=== PATIENT | male | born 1965 | race Caucasian/White ===

== ENCOUNTER → 2019-01-07 | Day surgery (SDC) | payer OTHER ==
[2019-01-06 11:40] VITALS: BMI 27.7
[~2019-01-07] MED LIST: Bupivacaine HCl 0.5%/Epinephrine 1:200,000/PF 30 ml Vial ONE; Fentanyl 100 MCG/2 ML VIAL ONE; Heparin 5,000 UNITS/ML VIAL ONE; Ketorolac Tromethamine 30 MG/ML VIAL ONE; Levofloxacin 500 mg/D5W 100 ml Premix Bag ONE; Lidocaine 2% PF 5 ML VIAL ONE; Midazolam HCl 2 mg/2 ml Vial ONE; PROPOFOL 200 MG/20 ML VIAL ONE; Sodium Chloride 0.9% 10 ML ONE
--- NOTE | 2019-01-07 07:53 | HP ---
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 He has a history of rectal cancer, undergoing low anterior resection in [place], [place], laparoscopic assisted in 2016. He had rosalva-adjunctive radiation, chemotherapy and postoperative chemotherapy. Apparently, he was node-negative without evidence of disease. The patient initially was seen in October 2015, found to have a 3 x 2.5 cm mass 1 to 2 cm from the dentate line on colonoscopy consistent with adenocarcinoma. Rectal ultrasound showed T3N0 tumor and he underwent rosalva-adjunctive radiation therapy and chemotherapy, followed by low anterior resection on 04/23/2016 with protective diverting ileostomy. Pathology revealed no residual malignancy with negative nodes. He had postoperative chemotherapy and then had his ileostomy reversed. In November 2016, flexible sigmoidoscopy was normal. On 05/13/2018, he was found to have bilateral pulmonary multiple metastases. Lung biopsy confirmed that. Moderately differentiated adenocarcinoma of colorectal origin. He was seen by MD Patterson with normal CEA level and PET scan on 07/29/2018 show bilateral lung metastases, left thyroid nodule FNA, metastatic colorectal cancer, restarting chemotherapy on 10/25/2018. Restaging PET scan on 11/02/2018 showed slightly improved lung metastases. There was some consideration for surgical resection of metastasis at a later point. Recent PET scan revealed some pelvic activity. The patient wants to schedule repeat endoscopy at [facility], we will refer him for that. I have been asked by Dr. Hawk to place a MediPort. Plan is to place a MediPort under IV sedation, local anesthesia as an outpatient. He has had recent labs and no further labs are necessary. The patient is followed by Dr. Flaherty, has a coronary stent in place, recently seen by him in the last week and he has stable coronary artery disease and he is asymptomatic. PAST MEDICAL HISTORY: 1. Hypertension. 2. Stable coronary artery disease, stent in 2013. 3. Arthritis in 2009. 4. Depression. 5. Rectal cancer. 6. Cholecystectomy in the past. PAST SURGICAL HISTORY: 1. Cholecystectomy. 2. Upper and lower endoscopy in the past. 3. Low-anterior resection. 4. Protective ileostomy, subsequent ileostomy reversal. 5. Right lower lobe lung biopsy, FNA of left thyroid nodule revealing metastatic disease. SOCIAL HISTORY: The patient is and has 2 children. Tobacco cessation, past history of use. MEDICATIONS: 1. Amlodipine. 2. Clonidine p.r.n. 3. Imodium. 4. Lorazepam. 5. Tramadol p.r.n. PHYSICAL EXAMINATION: VITAL SIGNS: Weight 228 pounds, height 75 inches, blood pressure 125/79, pulse 88, temperature 98.4 degrees. HEAD, EARS, EYES, NOSE, AND THROAT: Unremarkable. LUNGS: Clear to auscultation. CARDIAC: Regular rate and rhythm without murmur or gallop. ABDOMEN: Soft and nontender. No masses. Well-healed suprapubic small incision. Ileostomy reversal site, well-healed scar. ASSESSMENT: Metastatic rectal cancer. PLAN: MediPort placement. He has metastatic disease documented in bilateral lungs, right thyroid, and new PET signals in pelvis. Risks and benefits explained. He consents. Job ID: [id number]
--- NOTE | 2019-01-07 11:45 | RAD ---
PORTABLE CHEST 1 VIEW: Date: 01/07/19 Time: 1010 hours HISTORY: Postop MediPort placement. FINDINGS/IMPRESSION: The heart size is borderline. There is a right infrahilar mass. There is a left subclavian Port-A-Cat h with tip in the projection of the SVC. No pneumothoraces are seen. POS: [facility]
--- NOTE | 2019-01-07 12:37 | OP ---
DATE OF PROCEDURE: 01/07/2019 PREOPERATIVE DIAGNOSIS: Metastatic rectal cancer in need of antineoplastic chemotherapy access. POSTOPERATIVE DIAGNOSIS: Metastatic rectal cancer in need of antineoplastic chemotherapy access. PROCEDURE PERFORMED: Left subclavian vein MediPort low-profile, fluoroscopy used. ANESTHESIA: Intravenous sedation, local of 0.5% Marcaine with epinephrine 30 mL mixed with 2% Xylocaine 10 mL. DESCRIPTION OF PROCEDURE: The patient was taken to the operating room, where under intravenous sedation, neck and chest were prepared with ChloraPrep and draped in routine fashion. Local anesthetic was infiltrated in the skin and subcutaneous tissue about the operative site. Infraclavicular approach left made and cannulated the left subclavian vein through the J-wire, removing the trocar catheter, making a skin incision sharply, creating an incision in the left upper chest, creating a pocket with blunt and sharp dissection using cautery for hemostasis. Dilator and Peel-Away sheath were placed with J-wire in the subclavian vein. Dilator and J-wire were removed. Catheter was placed through the Peel-Away sheath. Peel-Away sheath was removed. Fluoroscopically, catheter tip was placed in optimal position in superior vena cava and catheter tailored to the length and connected to the MediPort, which was placed in subcutaneous pocket and secured with 2 interrupted sutures of 3-0 Prolene. Subcutaneous tissue was approximated with 3-0 Monocryl, skin with subdermal 4-0 Monocryl, and Tool glue applied. [place] needle was used to access the port, aspirated blood, and flushed with heparinized saline solution. The patient tolerated the procedure well. Job ID: [id number]
== END ==
LOC: SDC 08:46
PROVIDERS: ATTEND Specialist
DX: C20 Malignant neoplasm of rectum (principal); C78.02 Secondary malignant neoplasm of left lung; C78.01 Secondary malignant neoplasm of right lung; I10 Essential (primary) hypertension; I25.10 Atherosclerotic heart disease of native coronary artery without angina pectoris; M19.90 Unspecified osteoarthritis, unspecified site; F32.9 Major depressive disorder, single episode, unspecified; Z87.891 Personal history of nicotine dependence; Z92.3 Personal history of irradiation; Z92.21 Personal history of antineoplastic chemotherapy; Z95.5 Presence of coronary angioplasty implant and graft; Z90.49 Acquired absence of other specified parts of digestive tract; Z88.0 Allergy status to penicillin; Z79.899 Other long term (current) drug therapy; Z98.890 Other specified postprocedural states
CPT/HCPCS: 71045; C1788; J0131; J0670; J1642; J1644; J1885; J1956; J2001; J2250; J2704; J3010

== ENCOUNTER 2019-02-03 07:39 | Outpatient (CLI) | payer OTHER ==
--- NOTE | 2019-02-03 10:42 | PET ---
PET CT FROM VERTEX OF THE SKULL THROUGH THE MID THIGHS: HISTORY: History of rectal cancer. COMPARISON: No CT or PET CT evaluations are available for comparison. TECHNIQUE: Multiple PET CT images were obtained from the vertex through the mid thighs following administration of 11.8 mCi of F18-FDG IV. CT images were obtained for attenuation correction purposes only. A repo rt from [facility] CT evaluation of the chest was provided with the patient's documentation. No vivian ges were provided for comparison. INDICATION: Rectal cancer. FINDINGS: BIODISTIRUBTION: Biodistribution for the examination appears acceptable. HEAD AND NECK: No hypermetabolic mass or lymphadenopathy is evident. THORAX: There are bilateral pulmonary metastatic lesions. One of the largest lesions is seen within the medi al segment of the right middle lobe causing partial obstruction of the segmental bronchus of the righ t middle lobe with associated subsegmental volume loss in the right middle lobe. This lesion measure s approximately 4.1 cm in size with a peak SUV uptake of 5.83 and mean volume of 5.6. The lesion was reported to have measured 3.7 cm on a comparison examination. There are small subcentimeter nodules within the lateral segment of the right middle lobe that have no avidity. Additional larger pulmonary nodule within the right lower lobe measures 3.2 cm, which is stable to th e report provided. FDG uptake within this lesion is 6.05 as a maximum uptake value and 5.61 for a me an uptake value. There is a dumbbell-shaped 2.4 cm non-FDG avid pulmonary nodule left lower lobe that likely correspon ds to paired nodules in the left lower lobe described in the [facility] report. The peak activity i s 1.2 and mean activity is 0.67. There are numerous additional smaller non-FDG avid pulmonary nodules seen throughout both lungs, many of which are likely below PET resolution threshold. No hypermetabolic lymphadenopathy is evident. There is a left chest wall port in place. No axillary lymphadenopathy is noted. ABDOMEN AND PELVIS: No hypermetabolic mass or lymphadenopathy is evident. There is a small bowel enteroanastomosis within the right lower quadrant of the abdomen. There is a mild amount of retained stool within the colon. There is a normal retrocecal appendix. There is pro minent soft tissue thickening seen within the presacral region and the lower pelvis likely related to therapy changes. No hypermetabolic mass is evident within the lower pelvis. There is anastomotic s uture line seen at the rectal anal junction. No hypermetabolic lymphadenopathy is evidence. No free fluid is evident. SKIN AND OSSEOUS STRUCTURES: No hypermetabolic skin or osseous lesions identified. There are small bone islands within the pelvis . IMPRESSION: Abnormal PET scan. 1. Bilateral hypermetabolic pulmonary metastatic lesions. There are numerous small pulmonary nodule s throughout both lungs that are non-fluorodeoxyglucose avid. The lesion within the right middle lob e measures slightly larger than the provided report measuring 3.7 cm. It measures approximately 4 cm on today's examination. The lesion within the right lower lobe is stable measuring 3.2 cm. The rep ort details paired nodules in the left lower lobe measuring 15 and 14 mm respectively. There is a du mbbell-shaped non-fluorodeoxyglucose avid nodule within the left lower lobe likely corresponding to t he reported nodules in the left lower lobe measuring 2.4 cm, which his likely stable. 2. No evidence of metastatic disease within the abdomen and pelvis or head and neck region. 3. Post therapy changes involving the lower sacrum. POS: [facility]
== END 2019-02-03 07:40 | disposition home or self-care (01) ==
LOC: PET 07:39
PROVIDERS: ATTEND Internal Medicine Hematology & Oncology
DX: C20 Malignant neoplasm of rectum (principal); C78.01 Secondary malignant neoplasm of right lung; C78.02 Secondary malignant neoplasm of left lung; R91.8 Other nonspecific abnormal finding of lung field
CPT/HCPCS: 78815; A9552

== ENCOUNTER 2020-04-27 09:25 | Outpatient (CLI) | payer MEDICARE ==
[2020-04-27] MEDS ORDERED: Iopamidol 370 76% 100 ML VIAL ONE (11:42)
--- NOTE | 2020-04-27 13:50 | CT ---
EXAM: CT chest, abdomen, and pelvis with IV contrast: HISTORY: Rectal cancer. Evaluate for response to therapy. History of chemotherapy as well as radiation treatme nts. Metastatic lung disease. COMPARISON: [facility] [place] [facility] FINDINGS: CT THORAX: Lungs: Multiple scattered pulmonary nodules are seen throughout the lungs bilaterally which are stabl e in number and the majority of the nodules are stable in size. The largest nodules in each lower lobe are smaller in size. Largest solid spiculated pulmonary nodule posterior aspect right lower lobe previously measured 3.4 cm craniocaudal x3.2 cm transverse x2.2 cm AP and now measures 3 cm x 2.7 cm x 2.2 cm in similar dimensions on the current study. Largest pulmonary nodule in the left lower lo be previously measured 2.4 cm x 1.6 cm in greatest axial dimensions and now measures 2 cm x 1.1 cm. Pleura: No pleural effusion. Lymph nodes: No enlarged lymph nodes are seen by CT size criteria. Mediastinum: Vascular calcifications are again seen in the coronary arteries and aortic arch. A left subclavian Mediport catheter is noted in place with tip in SVC. Chest wall: No abnormalities CT ABDOMEN AND PELVIS: Liver: Within normal limits. Gallbladder: Surgically absent.\ Pancreas: Within normal limits. Spleen:There is a new lobulated area of diminished attenuation in a subcapsular location involving th e anterior and anterolateral aspect of the mid and inferior pole of the spleen. This is difficult to accurately measure given lobulated appearance, but in greatest dimensions measures 5.3 cm cranioca udal x6.5 cm AP x3.2 cm transverse. This could potentially represent subcapsular collection secondary to prior injury. The attenuation coefficient of this subcapsular collection is greater than simple fluid. No free fluid is seen adjacent to the spleen. Clinical correlation is suggested, and follow-up evaluation also recommended. Adrenal glands: Within normal limits. Kidneys: Within normal limits. Urinary Bladder: Mostly decompressed. Reproductive organs: Within normal limits for patient's age. Bowel: Postoperative changes loop of small bowel are seen in the right aspect of the pelvis with post operative changes in the region of the rectum. A moderate amount retained fecal material is seen throughout the colon. Loops of small bowel are normal in caliber. Adenopathy:No enlarged lymph nodes are seen by CT size criteria. Peritoneum/retroperitoneum: There is stranding and soft tissue attenuation seen in a presacral locati on stable from prior study which is likely secondary to postsurgical scarring and possibly postradiation changes. No fluid collection is seen in this region. Soft tissue density posterior to t he left aspect of the urinary bladder is present which is asymmetric to the contralateral right side, but this is likely due to prior postsurgical changes and asymmetry in the seminal vesicles. Thi s is stable in appearance compared to recent study as well as a prior PET/CT examination obtained in the [facility] on 11/03/2018. Abdominal wall: Fat-containing umbilical hernia is again seen. Osseous structures: Again noted is a hemangioma in the T2 vertebral body. No suspicious lytic or scle rotic osseous lesions are identified. Bilateral hip osteoarthritis is present. Sclerotic densities seen in each iliac bone are most compatible with bone islands.. IMPRESSION: 1. Pulmonary metastatic lesions with multiple pulmonary nodules scattered throughout the lungs bilate rally. Pulmonary nodules are stable in number, but the larger pulmonary nodules in each lower lobe have mildly diminished in size. 2. No evidence of lymphadenopathy. 3. Interval development of a subcapsular slightly complex collection involving the spleen. This could potentially be related to prior injury. Clinical correlation is recommended. No adjacent rib fractures are seen. No fluid or stranding is seen adjacent to the spleen. 4. Postoperative changes of loops of bowel as well as postoperative changes seen in a presacral locat ion stable compared to prior studies including PET CT scan examination in 2018. 5. Constipation.
--- NOTE | 2020-04-27 13:51 | CT ---
Exam: Thoracic spine CT with contrast HISTORY: Back pain. Metastatic colon cancer. Comparison none FINDINGS: 12 thoracic type vertebra. Thoracic spine vertebral body heights are maintained. No evidenc e of a fracture. Incidental hemangioma along the left aspect of the T2 vertebral body. Visualized ribs do not demonstrate any destructive processes. Please refer to separate chest abdomen pelvis CT report with regards to mediastinum, lung parenchyma and solid organs The spinal canal and neural foramina are patent IMPRESSION: No CT evidence of osseous metastases or pathologic fracture.
--- NOTE | 2020-04-27 14:26 | CT ---
Exam: Lumbar spine CT without contrast HISTORY: Colon cancer. Back pain. COMPARISON: None FINDINGS: With regards to the abdominal viscera and solid organs, please refer to separate chest abdo men and pelvic CT report 5 lumbar type vertebra. Lumbar spine vertebral body height is maintained. No fracture. Visualized bon y pelvis and sacrum are intact. Sclerotic focus in the right iliac wing, likely representing a bone island. Sacral alar preserved. No fractures Limited evaluation of the contents of the central spinal canal and neural foramina due to technique T12-L1, L1-L2, L2-L3, L3-L4: no significant central canal stenosis or significant neural foraminal na rrowing L4-L5: Broad-based disc bulge abuts the thecal sac. Encroachment upon both subarticular zones with pr obable minimal mass effect upon bilateral traversing L5 nerve roots. Mild bilateral neural foraminal narrowing L5-S1: Left subarticular disc herniation does abut the thecal sac. Mild mass effect upon the traversi ng left S1 nerve root. Moderate bilateral neural foraminal narrowing. Minimal vacuum joint phenomenon in the left facet joint at L5-S1. IMPRESSION: 1. No CT evidence of pathologic fracture 2. Degenerative changes at L4-L5 and L5-S1 as described above. No high-grade central canal stenosis o r high-grade neural foraminal narrowing
== END 2020-04-27 09:26 | disposition home or self-care (01) ==
LOC: CT 09:25
PROVIDERS: ATTEND Internal Medicine Hematology & Oncology
DX: C18.9 Malignant neoplasm of colon, unspecified (principal); C20 Malignant neoplasm of rectum; M54.5 Low back pain; M47.816 Spondylosis without myelopathy or radiculopathy, lumbar region; M47.817 Spondylosis without myelopathy or radiculopathy, lumbosacral region; R91.8 Other nonspecific abnormal finding of lung field; C78.00 Secondary malignant neoplasm of unspecified lung; K59.00 Constipation, unspecified; Z98.890 Other specified postprocedural states
CPT/HCPCS: 71260; 72129; 72132; 74177; Q9967

== ENCOUNTER 2020-08-03 09:04 | Outpatient (CLI) | payer MEDICARE ==
--- NOTE | 2020-08-03 14:57 | CT ---
CT CHEST, ABDOMEN AND PELVIS WITH IV CONTRAST: 08/03/20 HISTORY: Malignant neoplasm of rectum. Colon cancer. Lung mets. Exam requested for restaging. COMPARISON: 04/27/20. FINDINGS: Multiple lung nodules and masses noted bilaterally are stable. No new nodules or masses are seen. The largest measure about 5 cm in the right middle lobe, 2.8 cm in the right lower lobe and 2 cm in the left lower lobe on the axial images. No pneumothoraces, pleural or pericardial effusions are seen. No mediastinal hilar or axillary lympha denopathy is noted. The patient is post cholecystectomy. The liver, adrenal glands, and kidneys appear normal. The subsca pular fluid collection in the anterolateral aspect of the spleen is smaller measuring 2.5 cm transver sely (previously 3.2 cm). Interval development of pancreatic ductal dilatation is seen. No definite pancreatic mass is identifi ed. The bile ducts are not abnormally dilated. No free air, free fluid or lymphadenopathy is seen in the abdomen or pelvis. There are vascular calcifications without evidence of aneurysmal dilatation of the abdominal aorta. No suspicious lytic or sclerotic lesions are seen. Sclerotic densities in each iliac bone compatible with bone islands are again noted. Hemangioma in the T12 vertebral body is agai n seen. Soft tissue density in the presacral region is stable and likely due to postop/post radiation changes . Soft tissue density posterior to the left aspect of the urinary bladder is also stable. A small fat containing left inguinal hernia is present. Appendix is normal. IMPRESSION: 1. Stable pulmonary metastatic disease. 2. Interval reduction in size of the subcapsular fluid collection in the spleen. 3. Interval development of pancreatic ductal dilatation. This should be evaluated with endoscopi c ultrasound. POS: [facility]
== END 2020-08-03 09:05 | disposition home or self-care (01) ==
LOC: SCSCT 09:04
PROVIDERS: ATTEND Internal Medicine Hematology & Oncology
DX: C20 Malignant neoplasm of rectum (principal); C78.00 Secondary malignant neoplasm of unspecified lung; K86.89 Other specified diseases of pancreas
CPT/HCPCS: 71260; 74177

== ENCOUNTER 2020-10-05 09:04 | Outpatient (CLI) | payer MEDICARE ==
--- NOTE | 2020-10-05 12:36 | CT ---
CT NECK WITH CONTRAST: Indications: Neoplasm of rectum. Comparison: No comparison CT neck exam. Correlation: CT chest, abdomen, and pelvis, 08-03-2020. That exam revealed pulmonary metastatic disease . FINDINGS: The parotid glands, submandibular glands, and thyroid appear unremarkable. Tiny low density nodules i n the thyroid are subcentimeter. Nasopharynx unremarkable. Oropharynx and Waldeyer's ring appear unremarkable. Hypopharynx and larynx unremarkable. The parapharyngeal space, retropharyngeal space, munitions worker space, and carotid space appear unremarka ble. There is atherosclerotic calcification in both carotid bulbs, more prominent on the left without evidence of carotid stenosis. Review of lymph node levels show no significant level I nodes. The level 2 jugulodigastric nodes are unremarkable. No significant level 3 or 4 nodes. There are smal l level 4 supraclavicular nodes bilaterally which measure up to 7 mm. No significant cervical chain a denopathy. No significant supraclavicular adenopathy. No adenopathy seen in the superior mediastinum. The cervical spine shows mild degenerative change. The cervical vertebra exhibits normal signal with no evidence of lytic or blastic lesion. Paranasal sinuses and mastoids appear clear. Images through the lung apices reveal bilateral pulmonary nodules. See separate CT chest. IMPRESSION: Unremarkable CT neck. No evidence of cervical adenopathy. POS: [facility]
--- NOTE | 2020-10-08 12:42 | CT ---
CT OF THE CHEST AND ABDOMEN WITH IV CONTRAST INDICATION: History of metastatic rectal cancer COMPARISON: Prior CT of the chest, abdomen and pelvis dated August 03, 2020 FINDINGS: CHEST: Lungs: There is numerous bilateral metastatic lesions involving the lungs. The largest is seen within the right middle lobe measuring 6.2 x 3.9 cm where previously measured 4.4 x 2.5 cm. The index lesion in the right lower lobe now measures 3 cm were previously measured 2.8 cm. The index lesion in the left lower lobe now measures 2.1 cm were previous in measured 1.9 cm. Pleural space: No effusion. Mediastinum: There are coronary artery and thoracic aortic calcifications. There is a left subclavian chest wall port. Axilla: No pathologically enlarged lymph nodes. ABDOMEN: Liver: No focal lesion. Gallbladder: Surgically absent Pancreas: Persistent prominent enlargement of the main pancreatic duct without a focal pancreatic par enchymal lesion. The main pancreatic duct measures 1.2 cm. No definite intrahepatic or extrahepatic biliary ductal dilatation is evident. Adrenal glands: Normal. Spleen: The perisplenic fluid collection has decreased in size now measuring 2.1 cm were measured up to 2.5 cm on prior exam. Kidneys and ureters: Normal. No hydronephrosis. Vasculature: Vascular mild vascular Lymph nodes:No lymphadenopathy. Free fluid in abdomen:No free fluid is evident. Osseous structures: No acute osseous abnormality. No destructive osteolytic or osteoblastic lesion i s identified. There is scattered degenerative and osteoarthritic changes. Soft tissues:Normal. IMPRESSION: 1. Enlarging metastatic lesions of the lung. 2. Persistent prominent dilatation of the main pancreatic duct. Findings are nonspecific and may refl ect obstruction at the level of the pancreatic head that is poorly demonstrated on the current study. MRCP or ERCP examination may be helpful. Findings may reflect sequela of a main duct IPMN tumo r. 3. Reduction in size of the small perisplenic subcapsular fluid collection. Transcribed Date/Time: 10/08/2020 12:42 PM
== END 2020-10-05 09:05 | disposition home or self-care (01) ==
LOC: SCSCT 09:04
PROVIDERS: ATTEND Internal Medicine Hematology & Oncology
DX: C19 Malignant neoplasm of rectosigmoid junction (principal); C78.00 Secondary malignant neoplasm of unspecified lung; K86.89 Other specified diseases of pancreas; D73.89 Other diseases of spleen
CPT/HCPCS: 70491; 71260; 74160